=== PATIENT | male | born 1985 ===

== ENCOUNTER 2018-11-03 00:29 | Emergency (ER) | payer SELFPAY ==
[2018-11-03] MEDS ORDERED: METF-960 PO (02:35)
[2018-11-03] MEDS ORDERED: OLAN10TA3 PO (02:35)
== END 2018-11-03 01:07 | disposition left against medical advice (07) ==
LOC: EMS 00:30
DX: Z53.21 Procedure and treatment not carried out due to patient leaving prior to being seen by health care provider (principal)

== ENCOUNTER 2018-11-03 02:16 | Emergency (ER) | payer SELFPAY ==
[~2018-11-03] VITALS: Ht 172.7 cm; Wt 109.1 kg
[2018-11-03 02:27] VITALS: BP 127/47
[2018-11-03] MEDS ORDERED: OLAN10TA3 PO (02:35)
[2018-11-03] MEDS ORDERED: METF-960 PO (02:35)
[2018-11-03 02:39] LABS: GLUCOSE,POINT OF CARE 100 MG/DL (70-110)
== END 2018-11-03 03:55 | disposition left against medical advice (07) ==
LOC: EMS 02:16
DX: R44.3 Hallucinations, unspecified (principal); Z53.21 Procedure and treatment not carried out due to patient leaving prior to being seen by health care provider